=== PATIENT | female | born 1955 | race Caucasian/White ===

== ENCOUNTER → 2016-12-22 | Outpatient (CLI) | payer BC, MEDICARE | LOC: RAD 14:03 | DX: D89.9 Disorder involving the immune mechanism, unspecified (principal) | CPT/HCPCS: 71020 ==

== ENCOUNTER → 2020-10-03 | Outpatient (CLI) | payer MEDICARE, BC | LOC: RAD 16:39 | DX: R10.2 Pelvic and perineal pain (principal); S99.922A Unspecified injury of left foot, initial encounter; M54.6 Pain in thoracic spine; M54.5 Low back pain; W17.89XA Other fall from one level to another, initial encounter | CPT/HCPCS: 72072; 72100; 72170; 73630 ==

== ENCOUNTER → 2020-11-14 | Outpatient (CLI) | payer MEDICARE, BC | LOC: NM 08:10 | DX: Z91.81 History of falling (principal); M19.019 Primary osteoarthritis, unspecified shoulder; M51.34 Other intervertebral disc degeneration, thoracic region | CPT/HCPCS: 78306; A9503 ==

== ENCOUNTER → 2020-12-09 | Outpatient (CLI) | payer MEDICARE, BC | LOC: RAD 15:17 | DX: M25.512 Pain in left shoulder (principal); M54.9 Dorsalgia, unspecified; R07.81 Pleurodynia; M51.34 Other intervertebral disc degeneration, thoracic region | CPT/HCPCS: 71111; 72072; 73030 ==

== ENCOUNTER → 2020-12-16 | Outpatient (CLI) | payer MEDICARE, BC ==
[~2020-12-16] VITALS: Ht 165.1 cm; Wt 78.0 kg
== END ==
LOC: OPSV 12-03 10:00
DX: M80.00XD Age-related osteoporosis with current pathological fracture, unspecified site, subsequent encounter for fracture with routine healing (principal)
CPT/HCPCS: 96365; J3489

== ENCOUNTER 2021-03-28 09:46 | Emergency (ER) | payer MEDICARE, BC | END 2021-03-28 11:01 | disposition left against medical advice (07) | LOC: ER1 09:46 | DX: Z53.21 Procedure and treatment not carried out due to patient leaving prior to being seen by health care provider (principal) ==

== ENCOUNTER → 2021-09-15 | Day surgery (SDC) | payer OTHER ==
[~2021-09-15] MED LIST: CARAFATE1 GM PO; CELEBREX 200MG200 MG PO; CITRACAL + D31 EACH PO; CRESTOR 10 MG T10 MG GT; DRISDOL1250 MCG PO; GABAPENTIN600 MG PO; LINZESS145 MCG PO; NASONEX17 GM; NEXIUM40 MG PO; OSTEO BI-FLEX1 EAC1 PO; PHYSICIANS1000 MCG/1 INJ; ROPINIROLE HCL1 MG PO; TENORMIN 25 MG25 MG PO; TRAZODONE HCL150 MG PO; VITAMIN C500 M4 PO
== END | disposition home or self-care (01) ==
LOC: OR 05:56
DX: K57.30 Diverticulosis of large intestine without perforation or abscess without bleeding (principal); K29.70 Gastritis, unspecified, without bleeding; K44.9 Diaphragmatic hernia without obstruction or gangrene; K21.9 Gastro-esophageal reflux disease without esophagitis; I10 Essential (primary) hypertension; E78.5 Hyperlipidemia, unspecified; E03.9 Hypothyroidism, unspecified; F32.A Depression, unspecified; F41.9 Anxiety disorder, unspecified; Z88.2 Allergy status to sulfonamides; Z88.8 Allergy status to other drugs, medicaments and biological substances; Z79.899 Other long term (current) drug therapy; Z20.822 Contact with and (suspected) exposure to COVID-19
CPT/HCPCS: J2704; J7030

== ENCOUNTER → 2021-10-07 | Outpatient (CLI) | payer OTHER | LOC: RT 12:38 | DX: R10.13 Epigastric pain (principal) | CPT/HCPCS: 93005 ==

== ENCOUNTER → 2022-04-28 | Outpatient (CLI) | payer OTHER ==
[2022-04-28 13:52] LABS: HEMOGLOBIN 13.3 gm/dl (12.3-15.3); RED BLOOD COUNT 4.24 M/UL (4.00-5.10); WHITE BLOOD COUNT 7.1 K/UL (4.5-11.0)
[2022-04-28 15:03] LABS: BUN/CREATININE RATIO 21 (0-10)
== END ==
LOC: CT 12:34
PROVIDERS: Family Medicine
DX: R10.9 Unspecified abdominal pain (principal)
CPT/HCPCS: 36415; 80053; 85025; Q9967

== ENCOUNTER 2022-04-30 20:24 | Emergency (ER) | payer OTHER | END 2022-04-30 22:12 | disposition home or self-care (01) | LOC: ER1 20:24 | DX: S46.911A Strain of unspecified muscle, fascia and tendon at shoulder and upper arm level, right arm, initial encounter (principal); S96.912A Strain of unspecified muscle and tendon at ankle and foot level, left foot, initial encounter; S16.1XXA Strain of muscle, fascia and tendon at neck level, initial encounter; S00.81XA Abrasion of other part of head, initial encounter; E11.9 Type 2 diabetes mellitus without complications; Z79.82 Long term (current) use of aspirin; W22.8XXA Striking against or struck by other objects, initial encounter; Y92.009 Unspecified place in unspecified non-institutional (private) residence as the place of occurrence of the external cause | CPT/HCPCS: 70450; 72125; 73030; 73630; 99284 ==